=== PATIENT | male | born 1975 | race Caucasian/White ===

== ENCOUNTER 2022-12-16 00:08 | Day surgery (SDC) | payer OTHER, SELFPAY ==
[2022-12-03 13:53] VITALS: BMI 24.7
[2022-12-16 06:45] VITALS: BP 114/72; PULSE 57; RESP 18; TEMP 36.1; O2SAT 99; BMI 25.4
[2022-12-16] MEDS: LACTATED RINGERS 1,000 ML 150 ML IV CONT (06:59)
--- NOTE | 2022-12-16 07:55 | PM.HPGS ---
History of Present Illness History of Present Illness Consent: Risks, benefits, and alternatives have been discussed and questions answered. Patient agrees to proceed with procedure. Chief complaint: family hx malignant neoplasm digestive organs Narrative: Broderick Tejeda is a 47 year old male here for first colonoscopy, mother had colon cancer Review of Systems Constitutional: Constitutional: Denies headache(s) and Denies weakness Eyes: Eyes: Denies blurry vision ENT: Reports Normal hearing present, Denies headache(s) and Denies neck pain Cardiovascular: Cardiovascular: Denies chest pain and Denies dyspnea Respiratory: Respiratory: Denies dyspnea Gastrointestinal: Gastrointestinal: Reports no additional gastrointestinal complaints Genitourinary: Genitourinary: Denies dysuria Musculoskeletal: Musculoskeletal: Denies neck pain Integumentary/Breasts: Skin/Breast: Denies dry skin Neurologic: Reports Normal hearing present, Denies headache(s) and Denies weakness Psychiatric: Psychiatric: Denies anxiety Endocrine: Endocrine: Denies change in body appearance Hematologic/Lymphatic: Hematologic/Lymphatic: Denies easy bleeding Allergic/Immunologic: Allergic/Immunologic: Denies urticaria PMFSH Past Medical History Medical History (Updated 12/16/22 @ 07:55 by Christiano Berg MD) Family history of colon cancer in mother Family History Family History (Updated 01/30/22 @ 14:32 by Stefano Phillips MA) Mother Diabetes mellitus Colon cancer Sibling Patient's sister is in good health Patient's brother is in good health Father Family history of lung cancer Social History Social History (Updated 01/30/22 @ 14:28 by Stefano Phillips MA) Smoking status: Never smoker Second hand tobacco smoke exposure: No Alcohol intake: never Substance use type: does not use Lack of Transportation: No Lack of Food: Never True Current Housing: I Have Housing Concerned About Future Housing: No Difficulty Paying Gas/Electric Bills: No Difficulty Paying for Meds: No Currently Unemployed: No Education: Master's Degree or Higher Difficulty w/ Childcare or Family Care: No Living arrangements: with family Spiritual care concerns: No Meds Home Medications and Allergies Home Medications Medication Instructions Recorded Confirmed Type No Home Medications 12/03/22 12/16/22 History Allergies Allergy/AdvReac Type Severity Reaction Status Date / Time No Known Allergies Allergy Verified 12/16/22 06:51 Vital Signs Vital Signs - 24 hr 12/16/22 06:45 Temperature 97.0 F L Pulse Rate 57 L Respiratory Rate 18 Blood Pressure 114/72 Pulse Oximetry 99 Oxygen Delivery Room Air Exam Const: General: comfortable and no acute distress HENMT: Face/Nose/Sinus: Normal nares present Eyes: General: appearance normal, both eyes and all related structures Neck: Neck: no JVD Resp: Auscultation: clear to auscultation bilaterally Cardio: Rate: regular rate Rhythm: regular rhythm GI: Inspection: non-distended GI Palp: Yes Soft to palpation Skin: General skin exam: normal color Neuro: General: gait normal Speech: normal speech Extrem: General: normal to inspection Psych: Mental Status: mental status grossly normal Assessment and Plan Assessment and plan (1) Family history of colon cancer in mother: Code(s): Z80.0 - Family history of malignant neoplasm of digestive organs Status: Acute Assessment and Plan: colonoscopy
--- NOTE | 2022-12-16 07:59 | WPDANESEPPF ---
Anes - Initial Pre Proc Eval Procedure: Operation Date: 12/16/22 08:00 Proposed Procedures p Colonoscopy - Christiano Berg MD Date/Time: 12/16/22 07:59 Surgeon: Christiano Berg MD Pre Op Diagnosis: family hx malignant neoplasm digestive organs Patient Data Age: 47 Gender: M Height: 1.83 m Weight: 85.3 kg Last Vital Signs Temp 97.0 F L 12/16/22 06:45 Pulse 57 L 12/16/22 06:45 Resp 18 12/16/22 06:45 BP 114/72 12/16/22 06:45 Pulse Ox 99 12/16/22 06:45 O2 Del Method Room Air 12/16/22 06:45 Allergies Allergy/AdvReac Type Severity Reaction Status Date / Time No Known Allergies Allergy Verified 12/16/22 06:51 Home Medications Medication Instructions Recorded Confirmed Type No Home Medications 12/03/22 12/16/22 History Patient hx anesthesia problems: none Family hx anesthesia problems: none Results Review: All pre-operative results and documents have been reviewed as part of the pre-operative evaluation. [facility] Past Medical History Medical History (Updated 12/16/22 @ 07:55 by Christiano Berg MD) Family history of colon cancer in mother Family History Family History (Updated 01/30/22 @ 14:32 by Stefano Phillips MA) Mother Diabetes mellitus Colon cancer Sibling Patient's sister is in good health Patient's brother is in good health Father Family history of lung cancer Social History Social History (Updated 01/30/22 @ 14:28 by Stefano Phillips MA) Smoking status: Never smoker Second hand tobacco smoke exposure: No Alcohol intake: never Substance use type: does not use Lack of Transportation: No Lack of Food: Never True Current Housing: I Have Housing Concerned About Future Housing: No Difficulty Paying Gas/Electric Bills: No Difficulty Paying for Meds: No Currently Unemployed: No Education: Master's Degree or Higher Difficulty w/ Childcare or Family Care: No Living arrangements: with family Spiritual care concerns: No Anes - Eval Final PreProcedure Day of Procedure 12/16/22 07:59 Patient weight: normal Heart: regular rate and rhythm Lungs: clear to auscultation Airway: Mallampati scale class II Neurological: alert and oriented Last oral intake: >/= 8 hours ASA classification: I Emergent: no Anesthetic plan: proceed Anesthesia type and monitoring: general GIVS and standard monitoring Results Review: All pre-operative results and documents have been reviewed as part of the pre-operative evaluation. Informed Consent: The patient's anesthetic plan and its attendant risks and benefits were discussed with the patient/family/POA. Questions were solicited and answers provided to the satisfaction of the patient/family/POA.
[2022-12-16 08:16] VITALS: BP 97/62; PULSE 56; RESP 16; O2SAT 100
[2022-12-16 08:26] VITALS: BP 100/64; PULSE 55; RESP 16; O2SAT 100
[2022-12-16 08:36] VITALS: BP 103/56; PULSE 53; RESP 16; O2SAT 100
== END 2022-12-16 08:46 | disposition home or self-care (01) ==
PROVIDERS: PCP Internal Medicine; Visit Provider Internal Medicine Gastroenterology
PROC: 0DJD8ZZ Inspection of Lower Intestinal Tract, Via Natural or Artificial Opening Endoscopic (ICD-10-PCS; CPT 45378; principal; 2022-12-16 08:00)
DX: Z12.11 Encounter for screening for malignant neoplasm of colon (principal); D12.0 Benign neoplasm of cecum; K63.5 Polyp of colon; Z80.0 Family history of malignant neoplasm of digestive organs
CPT/HCPCS: 45385; 88305; J2704; J7120

== ENCOUNTER 2025-03-09 18:18 | Emergency (ER) | payer OTHER, SELFPAY ==
--- NOTE | ~2025-03-09 | XR_ITS ---
EXAMINATION: XR chest 2V DATE: 03/09/2025 18:33 INDICATION: Cough and congestion. TECHNIQUE: Frontal and lateral views of the chest were obtained. COMPARISON: None. FINDINGS: Heart size is normal. Lungs are clear of acute processes. IMPRESSION: 1. No acute findings. Reviewed, dictated and finalized at location [facility] IMPRESSION: 1. No acute findings.
--- NOTE | 2025-03-09 18:19 | ED.URI ---
HPI - URI/Sore Throat General Chief Complaint: Upper Respiratory Infection Stated Complaint: chest congestion Time Seen by Provider: 03/09/25 18:19 Source: patient Mode of arrival: ambulatory Limitations: no limitations History of Present Illness HPI Narrative: Broderick is a 49 year old male patient presenting to the clinic today with c/o chest congestion and cough x 3 weeks. 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 He states he has approximately 4 pills left of the Augmentin. He was also given some cough syrup. He did miss a couple doses of the antibiotics. Denies any chest pain or shortness of breath. Does have a cough and feels as though his chest is congested. Denies any fevers, chills, body aches. He is getting ready to get on a plane to go to [place] and wants to be checked for walking pneumonia. Related Data Home Medications ?Medication ?Instructions ?Recorded ?Confirmed ?Last Taken ?Type amoxicillin 875 mg-potassium tablet 03/09/25 Unknown History clavulanate 125 mg tablet Allergies Allergy/AdvReac Type Severity Reaction Status Date / Time No Known Allergies Allergy Verified 03/09/25 18:20 Review of Systems Review of Systems: Pertinent positives per HPI. Patient denies any fever, chills, rash, headache, visual changes, dizziness, shortness of breath, chest pain, palpitations, nausea, vomiting, diarrhea, constipation, abdominal pain, or any urinary issues. [facility] Past Medical History Medical History Family history of colon cancer in mother Family History Family History Mother Diabetes mellitus Colon cancer Sibling Patient's sister is in good health Patient's brother is in good health Father Family history of lung cancer Social History Social History Smoking status: Never smoker Second hand tobacco smoke exposure: No Alcohol intake: never Substance use type: does not use Lack of Transportation: No Lack of Food: Never True Current Housing: I Have Housing Concerned About Future Housing: No Difficulty Paying Gas/Electric Bills: No Difficulty Paying for Meds: No Currently Unemployed: No Education: Master's Degree or Higher Difficulty w/ Childcare or Family Care: No Living arrangements: with family Spiritual care concerns: No Comments At the time of my signature, I reviewed and agree with the nursing past medical, surgical, social, and family history. There is no relevant family history pertinent to the patient complaint. Exam Narrative: General: Well-developed, well nourished, in no apparent distress Head: Normocephalic, atraumatic Eyes: Pupils equally round and reactive to light bilaterally, EOM intact, sclera and conjunctive clear, no discharge, lids normal Ears: TMs intact and clear, ear canals clear, no drainage, grossly hearing normal. Nose: Nares patent, no discharge, no inflammation, no sinus tenderness. Mouth: Oral pharynx without lesions or masses, good dentition, MMM. Neck: Supple, trachea midline, no enlargement of anterior or posterior cervical nodes, no thyroid masses or goiter palpable. Cardio: Regular rate and rhythm, s1 and s2 normal, no murmur appreciated. Resp: Clear to auscultation bilaterally, no rhonchi, rales, wheezing or rubs Course Course Emergency Course: Portions of this record may have been created with voice recognition software. Level of Care: Express Care Visit Vital Signs Vital signs: Vital Signs Oxygen Delivery Room Air 03/09/25 18:23 Temperature 36.5 C 03/09/25 18:24 Pulse Rate 61 03/09/25 18:24 Respiratory Rate 16 03/09/25 18:24 Blood Pressure 110/71 03/09/25 18:24 Pulse Oximetry 100 03/09/25 18:24 Oxygen Delivery Room Air 03/09/25 18:23 Vital signs reviewed MDM - URI/Sore Throat MDM Narrative Medical decision making narrative: At the time of visit patient is resting comfortably on the exam table. Patient appears to be nontoxic. C/o chest congestion and cough x 3 weeks. 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 He states he has approximately 4 pills left of the Augmentin. He did miss a couple doses. Denies any chest pain or shortness of breath. Does have a cough and feels as though his chest is congested. Denies any fevers, chills, body aches. He is getting ready to get on a plane to go to [place] and wants to be checked for walking pneumonia. Chest x-ray was read per patient's request. Diagnosis: Chest x-ray was performed and was negative for any acute cardiopulmonary process. Plan: I suspect patient likely has bronchitis/post viral cough. Will send in prescription for prednisone and albuterol inhaler as needed for cough shortness of breath or wheeze. Patient already has cough syrup at home. Supportive measures were discussed with the patient and they voiced understanding discharge instructions and agrees to treatment plan. Return precautions reviewed Differential Diagnosis Differential diagnosis: Likely upper respiratory infection, otitis media, sinusitis, viral infection, bronchitis, influenza, pharyngitis and other (COVID) Imaging Data Radiologist's impression: ITS Impressions Chest X-Ray 03/09/25 18:45 IMPRESSION: 1. No acute findings. Discharge Plan Discharge Clinical Impression: Bronchitis Patient Disposition: Home Condition: Stable Instructions: Antibiotic Form, Acute Bronchitis (ED) Additional Instructions: Chest x-rays negative for any acute cardiopulmonary process. Take prescription medications only as prescribed-prednisone and albuterol inhaler as needed for cough, shortness breath, wheeze. Finished taking the Augmentin as prescribed Increase fluids and stay well hydrated May take Tylenol or motrin as directed on bottle for pain/fever May use Flonase 1 spray in each nare daily May take OTC antihistamines such as Zyrtec or Claritin daily as directed on bottle May apply Vicks vapor rub to chest to open sinuses Sinus rinses for congestion Cepacol spray, cough drops, throat lozenges, warm tea with honey/lemon, gargle salt water to soothe throat BRAT diet for diarrhea Clear liquids x 24 hours then advance as tolerated for nausea/vomiting Go to the ED if you develop a worsening in your condition- high fever not controlled by Tylenol or Motrin, dehydration, weakness, lethargy, shortness of breath, or chest pain. Follow up with your PCP in 3-5 days if symptoms persist. Patient Language: Sinhala Prescriptions: New prednisone 20 mg tablet 40 mg PO DAILY 5 Days Qty: 10 0RF albuterol sulfate 90 mcg/actuation HFA aerosol inhaler 2 puff inhalation Q4-6H PRN (Reason: shortness of breath or wheezing) 30 Days Qty: 8.5 0RF No Action amoxicillin-pot clavulanate 875-125 mg tablet Follow-up/Referrals: [place],Isaiah Powers MD [Primary Care Provider, Unknown] Time of Disposition: 18:30 Quality NIHSS Nursing Documentation ED NIHSS nursing documentation: reviewed/agree
[2025-03-09 18:24] VITALS: BP 110/71; PULSE 61; RESP 16; TEMP 36.5; O2SAT 100
== END 2025-03-09 18:51 | disposition home or self-care (01) ==
PROVIDERS: Emergency Provider Nurse Practitioner Family; PCP Family Medicine
DX: J40 Bronchitis, not specified as acute or chronic (principal)
CPT/HCPCS: 71046; 99213; G0463